=== PATIENT | female | born 1935 | race Caucasian/White ===

== ENCOUNTER 2020-09-02 14:59 | Inpatient (IN) | payer OTHER, BC ==
[~2020-09-02] VITALS: Ht 165.1 cm; Wt 81.3 kg
--- NOTE | ~2020-09-02 | EMS ---
[address] [address] EMS Patient Care Report Name: HAI STRAUSS Room #: PRE REYES MNeda#: [id number] Admission: Attend Phys: Discharge: Date of : 31 Report #: [id number] THIS REPORT FOR: //name// Report Transmitted: 09/02/2020 16:01 EMS Care Summary [facility] MED-ACT Incident [id number] @ 09/02/2020 14:21 Incident Location [address] [place] [address] Patient HAI GARRETT Female, 85 Years 1935 Patient Address [address] [place] [address] Patient History Hypertension (HTN),Fibromyalgia,Gastro-Esophageal Reflux Disease (GERD),Depression,Anxiety,Atrial Fibrillation,Chronic Pain, Patient Allergies No known allergies, Patient Medications Morphine, Guaifenesin, Lorazepam, Carvedilol, Ondansetron, Omeprazole, Sertraline, Chief Complaint she's had diarrhea Disposition Transported No Lights/Warren Dispatch Reason Sick Person Transported To [facility] Narrative [address] [address] EMS Patient Care Report Name: HAI STRAUSS Room #: PRE ER M.R.#: [id number] Admission: Attend Phys: Discharge: Date of : 33 Report #: [id number] Dispatched to [facility] for an 85 year old female reported to be getting weaker. Staff reports that the pt tested positive for COVID 19 over the weekend, after having a cough and diarrhea since Wednesday. She says that the pt also began vomiting today and is being sent to the ER at [facility] for further evaluation. Pt is found alert, seated in a recliner inside of her room. She reports that her stomach aches/cramps all over and that her R should (her "bad shoulder") hurts like always. Pt denies any dizziness, chest pain, dyspnea, or current nausea. Pt is assisted with standing and pivoting to the cot. She became incontinent of stool as she stood and pivoted. Pt was then secured and moved to the ambulance for a no lights or sirens transport to [facility]. Pt rested en-route to the ER without change in complaint. Pt lifted from the cot to the ER bed in room #7 using a lateral sheet pull. Care transferred to Rosalva XAVIER. Initial Vitals @14:48P: 95,SpO2: 97,DE Suspected: false @14:53P: 99,BP: 87/55,SpO2: 100, @14:43P: 109,R: 18,BP: 112/74,GCS: 15,SpO2: 95,Revised Trauma: 12, @14:34P: 92,R: 18,Pain: 4/10,GCS: 15,Temp: 97.4F, Assessments @14:35MENTAL:Person Oriented,Place Oriented,Event Oriented,Time Oriented,SKIN:HEENT:Head/Face: No Abnormalities,Eyes: No Abnormalities,LUNG SOUNDS:General: Nausea,Right Upper: Tenderness,Right Lower: Tenderness,Left Upper: Tenderness,Left Lower: Tenderness,General: Diarrhea,General: Vomiting,ABDOMEN:General: Nausea,Right Upper: Tenderness,Right Lower: Tenderness,Left Upper: Tenderness,Left Lower: Tenderness,General: Diarrhea,General: Vomiting,PELVIS//GI:Incontinence,EXTREMITIES:Right Arm: Other,Left Arm: No Abnormalities,Left Leg: No Abnormalities,Right Leg: No Abnormalities,PULSE:Radial: 2+ Normal,NEURO:No Abnormalities, Impression COVID-19 - Confirmed by testing Procedures @14:33Surgical Mask on PatientResponse: Unchanged Timeline 14:18,Call Received 14:18,Psap Call 14:21,Dispatched 14:22,En Route 14:26,On Scene 14:32,At Patient 14:33,Surgical Mask on Patient,Response: Unchanged 14:34,BP: / M,PULSE: 92,RR: 18 R,SPO2: Ox,ETCO2: ,BG: ,PAIN: 4,GCS: 15, 14:42,Depart Scene [address] [address] EMS Patient Care Report Name: HAI STRAUSS Room #: PRE ER M.R.#: [id number] Admission: Attend Phys: Discharge: Date of : 31 Report #: [id number] 14:43,BP: 112/74 M,PULSE: 109,RR: 18 R,SPO2: 95 Ox,ETCO2: ,BG: ,PAIN: ,GCS: 15, 14:48,BP: / M,PULSE: 95,RR: R,SPO2: 97 Ox,ETCO2: ,BG: ,PAIN: ,GCS: , 14:53,BP: 87/55 M,PULSE: 99,RR: R,SPO2: 100 Ox,ETCO2: ,BG: ,PAIN: ,GCS: , 14:55,At Destination 15:31,Call Closed Disclaimer v1.1 Copyright 2020 [employer] This EMS Care Summary contains data elements from the applicable legal record (which may be displayed differently). It is designed to provide pertinent information for the following purposes: continuity of care, clinical quality, and state data reporting. The complete legal record is available to ED staff and administrators of the receiving hospital in [employer]'s Patient Tracker. All data is provided "as is."
[2020-09-02 15:00] VITALS: BP 99/44
[2020-09-02 16:21] LABS: HEMATOCRIT 41.4 % (37.0-47.0); HEMOGLOBIN 13.4 gm/dL (12.0-15.0); MCH 27.1 pg (26.0-34.0); MCHC 32.4 g/dL (28.0-37.0); MCV 83.8 fL (80.0-100.0); RBC 4.94 mil/uL (4.20-5.00); RDW 16.7 % (10.5-14.5); WBC 6.3 thou/uL (4.0-11.0)
[2020-09-02 16:30] LABS: PLATELET COUNT 81 thou/uL (150-400)
[2020-09-02 16:49] LABS: ALBUMIN 3.7 g/dL (3.4-5.0); CREATININE 1.8 mg/dL (0.6-1.0); DIRECT BILIRUBIN 0.2 mg/dL (<0.1-0.2); POTASSIUM 3.8 mmol/L (3.5-5.1); TOTAL BILIRUBIN 0.5 mg/dL (0.2-1.0); TOTAL PROTEIN 6.4 g/dL (6.4-8.2)
[2020-09-02 16:57] LABS: CALCIUM 8.5 mg/dL (8.5-10.1)
[2020-09-02 17:24] LABS: ABSOLUTE NEUTROPHILS 2.5 thou/uL (1.4-8.2)
[2020-09-02 17:25] LABS: ANISOCYTOSIS 1+; LARGE PLATELETS OCCASIONAL
[2020-09-02 17:49] LABS: URINE BILIRUBIN NEGATIVE (Negative); URINE BLOOD 1+ (Negative); URINE CLARITY CLEAR; URINE COLOR YELLOW; URINE GLUCOSE-RANDOM* NEGATIVE (Negative); URINE KETONES NEGATIVE (Negative); URINE NITRITE-REFLEX NEGATIVE (Negative); URINE PROTEIN (DIPSTICK) NEGATIVE (Negative); URINE SPECIFIC GRAVITY >= 1.030 (1.005-1.035); URINE UROBILINOGEN 0.2 E.U./dl (0.2-1.0)
[2020-09-02 17:50] LABS: URINE LEUKOCYTES-REFLEX 1+ (Negative)
[2020-09-02 17:55] LABS: BACTERIA-REFLEX >30 Many /HPF (None Seen); CASTS None Seen /LPF (None Seen); CRYSTALS None Seen /LPF (None Seen); SQUAMOUS 0-3 Few /LPF (0-3)
[2020-09-02 17:56] LABS: URINE RBC 0-2 Rare /HPF (0-2); URINE WBC-REFLEX 0-5 Rare /HPF (0-5)
[2020-09-02 20:46] VITALS: BP 98/53
[2020-09-02 22:00] VITALS: BP 120/51
[2020-09-02 22:20] VITALS: BP 130/63
[2020-09-03] MEDS ORDERED: TYLENOL325 MG PO (02:14)
[2020-09-03] MEDS ORDERED: FLORANEX TABLE1 EACH PO (02:15)
[2020-09-03] MEDS ORDERED: BIOFREEZE118 ML TOP (02:19)
[2020-09-03] MEDS ORDERED: COREG25 M1 PO (02:20)
[2020-09-03] MEDS ORDERED: IRON325 M1 PO (02:22)
[2020-09-03] MEDS ORDERED: CHEST CONG100 MG/5 M PO (02:28)
[2020-09-03] MEDS ORDERED: LORAZEPAM 0.50.5 MG PO (02:29)
[2020-09-03] MEDS ORDERED: ARYMO ER30 MG PO (02:34)
[2020-09-03] MEDS ORDERED: MORPHINE SULFAT15 M3 PO (02:36)
[2020-09-03] MEDS ORDERED: OMEPRAZOLE20 M2 PO (02:44)
[2020-09-03] MEDS ORDERED: ONDANSETRON HCL4 M2 PO (02:45)
[2020-09-03] MEDS ORDERED: SERTRALINE HCL100 MG PO (02:47)
[2020-09-03] MEDS ORDERED: CLEARLAX17 GM PO (02:49)
[2020-09-03] MEDS ORDERED: SYSTANE COMPLET10 ML OPHTHALMIC (02:50)
--- NOTE | 2020-09-03 03:52 | NUR ---
Pt admitted from ED at 2220. A/OX2-3,pleasant,able to make needs known. VSS. Denies SOA, has a dry cough, on RA. C/o right shoulder pain,order obtained for [place] and applied with some relief reported.Incontinent of B&B. Redness noted on periarea,moisture barrier applied as needed. Pt reports she uses a RW in [place] but too weak to ambulate at this time. Fall precautions in place,agrees to call for help before getting up. Med rec completed per [place] records. NSR on telemetry. Resting quietly at this time,will continue to monitro pt.
[2020-09-03 05:37] LABS: CALCIUM 8.2 mg/dL (8.5-10.1); CREATININE 1.4 mg/dL (0.6-1.0); POTASSIUM 3.6 mmol/L (3.5-5.1)
[2020-09-03 05:55] VITALS: BP 126/61
[2020-09-03 07:27] VITALS: BP 143/88
[2020-09-03 11:31] VITALS: BP 130/88
[2020-09-03 15:22] VITALS: BP 99/55
--- NOTE | 2020-09-03 15:25 | NUR ---
PT CARE ASSUMED AT 0700, PT ALERT AND ORIENTED X3, FORGETFUL AND CONFUSED. THIS IS PT BASELINE ACCORDING TO PT DAUGHTERS. PT IS ON ROOM AIR, NO SIGNS OF DISTRESS NOTED. PT COMPLAINS OF RIGHT SHOULDER PAIN, PAIN MEDICATION GIVEN PER ORDER. PT HAS A POOR APPETITE, ENCOURAGE TO EAT BUT BARELY DID. FALL PRECAUTIONS IN PLACE. WILL CONTINUE TO MONITOR.
--- NOTE | 2020-09-03 15:32 | NUR ---
INITIAL ASSESSMENT: Received consult. ROBERT reviewed chart and spoke with nursing and attending physician. Pt was admitted from [facility] due to weakness/nausea/vomiting/dehydration. Pt placed in Enhanced Isolation due to have prior positive COVID-19 test at her facility. Pt is afebrile and not requiring O2. Pt is on IV abx. PT/OT ordered to evaluate pt. ROBERT received call from DUC Tapia with [facility], stating pt had been on service with them prior to admission. Hospice services were revoked in order for pt to be sent to the hospital for evaluation. Hospice revocation paperwork received and provided to [facility] to be scanned into pt's medical record. Pt with hx of dementia. ROBERT spoke with pt's dtr, Mariana, via phone. Introduced role of ROBERT. Pt has lived at [facility] for about 3 weeks. Pt and her dtr, Alea, just moved to the area. Pt was living in [place] with Mariana. Pt is normally w/c bound. Pt has lost about 70 pounds in the last 9 months. Pt was admitted to hospice while at [facility]. Pt's family is interested in SNF/LTC referral, as they feel that pt requires too much assistance in order to return to [facility]. ROBERT provided options for SNFs who are taking COVID pts. Pt's dtr requests referral to be sent to [facility]. ROBERT faxed referral and spoke with [facility] rental coordinator, Kecia. ROBERT updated Regina with [facility], who states that they have a contract with [facility] if pt needs hospice after short term skilled stay. Awaiting input from the SNF at this time. ROBERT is following to assist as needed with discharge planning.
[2020-09-03 20:04] VITALS: BP 102/46
--- NOTE | 2020-09-03 22:38 | NUR ---
PT ALERT AND RESTING IN BED. IVF INTACT, LUNGS CLEAR WITH COUGH. PT REPORTING CHRONIC R SHOULDER PAIN AND PRNS PROVIDED. PT HAS FEMALE EXT CATH IN PLACED. BED ALARM ON. PT PROVIDED HS SNACK. PT VERY TALKATIVE RE MOVING TO FROM [place], LIVING IN [place], HER , WHEN HE PASSED, WHERE THEY LIVED, THAT SHE HAS OUTLIVED ALL HER FRIENDS. PT COMPLAINED THAT SHE CAN NOT SLEEP WITH LIGHTS ON SUCH THE IV POLE AND BED ALARM, COVERED WITH TOWELS PER HER REQUEST.
[2020-09-04 04:21] VITALS: BP 135/83
[2020-09-04 05:14] LABS: CREATININE 0.9 mg/dL (0.6-1.0); POTASSIUM 4.5 mmol/L (3.5-5.1)
[2020-09-04 06:06] LABS: HEMOGLOBIN 12.6 gm/dL (12.0-15.0); MCH 27.8 pg (26.0-34.0); MCHC 32.5 g/dL (28.0-37.0)
[2020-09-04 06:08] LABS: HEMATOCRIT 38.6 % (37.0-47.0); MCV 85.3 fL (80.0-100.0); RBC 4.53 mil/uL (4.20-5.00); RDW 17.2 % (10.5-14.5); WBC 5.6 thou/uL (4.0-11.0)
[2020-09-04 08:42] VITALS: BP 118/73
[2020-09-04 08:50] VITALS: BP 118/73
--- NOTE | 2020-09-04 10:08 | NUR ---
DR LORENZO HERE NEW ORDERS TO DC TELE AND FLUIDS. HE STATES PT IS READY FOR DC. WILL SPEAK WITH CASE MANAGEMENT.
--- NOTE | 2020-09-04 10:09 | NUR ---
PT ATE BREAKFAST AND TOOK AM MEDS COMPLIANT WITH CARE.
--- NOTE | 2020-09-04 11:13 | NUR ---
SPOKE WITH PATIENTS DAUGHTER AMANDA AT [phone] UPDATE HER ON PATIENTS CONDITION AND ANSWERED HER QUESTIONS.
--- NOTE | 2020-09-04 14:40 | NUR ---
DISCHARGE NOTE: ROBERT reviewed chart and spoke with nursing and attending physician. Pt remains in Enhanced Isolation due to COVID-19. Pt is medically stable for discharge to post-acute care today. ROBERT spoke with Kecia, clinical program coordinator at [facility] who states they are able to accept pt today. Kecia has spoken with pt's dtr, Mariana, regarding skilled stay and then possible transition to LTC or [place] after skilled stay. ROBERT faxed finalized discharge orders/summary to the facility and confirmed info was received. W/c van transportation scheduled for [phone] per facility's arrangements. ROBERT spoke with pt's dtr, Mariana via phone to provide update and discuss discharge plan. Mariana is aware and in agreement with plan. ROBERT updated [facility] rug weaver, Regina, who will follow pt at the facility, should pt need hospice after skilled rehab. Chart copy requested. Nursing to call report. ROBERT updated Yelena at [facility] of pt's discharge disposition. No additional SW needs identified at this time, but is available to assist should needs arise.
--- NOTE | 2020-09-04 16:04 | NUR ---
discharge papers reviewed signed and copy in chart. iv acsess dcd. all belongings packed and sent with patient. tried to call report to reena polk but left message no one answered tried xs 2. pt left at approx 15:30 while this nurse was at lunch.
== END 2020-09-04 16:09 | DRG 871 ==
LOC: EDBD 14:59 → ER 14:59 → EROBS 20:07 → 3W 20:07
PROVIDERS: Emergency Medicine; Hospitalist; Nurse Practitioner Family; ADMIT Hospitalist; ATTEND Hospitalist
DX: A41.89 Other specified sepsis (principal); U07.1 COVID-19; J12.89 Other viral pneumonia; N17.0 Acute kidney failure with tubular necrosis; N39.0 Urinary tract infection, site not specified; F41.9 Anxiety disorder, unspecified; K21.9 Gastro-esophageal reflux disease without esophagitis; I10 Essential (primary) hypertension; F32.9 Major depressive disorder, single episode, unspecified; E86.0 Dehydration; G89.4 Chronic pain syndrome; Z60.2 Problems related to living alone; I48.0 Paroxysmal atrial fibrillation; M79.7 Fibromyalgia; D69.6 Thrombocytopenia, unspecified; Z79.899 Other long term (current) drug therapy
CPT/HCPCS: 10879

== ENCOUNTER 2020-11-28 18:13 | Inpatient (IN) | payer OTHER, BC ==
[~2020-11-28] VITALS: Ht 165.1 cm; Wt 77.6 kg
[~2020-11-28 18:13] MED LIST: ARYMO ER30 MG PO; BIOFREEZE118 ML TOP; CHEST CONG100 MG/5 M PO; CLEARLAX17 GM PO; COREG25 M1 PO; FLORANEX TABLE1 EACH PO; IRON325 M1 PO; LORAZEPAM 0.50.5 MG PO; MORPHINE SULFAT15 M3 PO; OMEPRAZOLE20 M2 PO; ONDANSETRON HCL4 M2 PO; SERTRALINE HCL100 MG PO; SYSTANE COMPLET10 ML OPHTHALMIC; TYLENOL325 MG PO
[2020-11-28 18:14] VITALS: BP 112/57
[2020-11-28 19:19] LABS: URINE BILIRUBIN 1+ (Negative); URINE BLOOD 2+ (Negative); URINE CLARITY CLOUDY; URINE COLOR YELLOW; URINE GLUCOSE-RANDOM* NEGATIVE (Negative); URINE KETONES 1+ (Negative); URINE PROTEIN (DIPSTICK) 2+ (Negative); URINE SPECIFIC GRAVITY 1.015 (1.005-1.035)
[2020-11-28 19:20] LABS: URINE LEUKOCYTES-REFLEX 3+ (Negative); URINE NITRITE-REFLEX POSITIVE (Negative)
[2020-11-28 19:21] LABS: HEMATOCRIT 37.2 % (37.0-47.0); HEMOGLOBIN 11.7 gm/dL (12.0-15.0); ICTOTEST (BILI CONFIRMATORY) Positive (Negative); MCHC 31.5 g/dL (28.0-37.0); MCV 82.6 fL (80.0-100.0); PLATELET COUNT 104 thou/uL (150-400); RDW 17.7 % (10.5-14.5)
[2020-11-28 19:34] LABS: POTASSIUM 3.4 mmol/L (3.5-5.1)
[2020-11-28 19:41] LABS: ALBUMIN 3.4 g/dL (3.4-5.0); TOTAL BILIRUBIN 1.9 mg/dL (0.2-1.0); TOTAL PROTEIN 6.9 g/dL (6.4-8.2)
[2020-11-28 19:43] LABS: TRIPLE PHOSPHATE CRYSTALS 4-10 Moderate /LPF (None Seen)
[2020-11-28 19:45] LABS: BACTERIA-REFLEX >30 Many /HPF (None Seen)
[2020-11-28 19:46] LABS: SQUAMOUS 4-10 Moderate /LPF (0-3)
[2020-11-28 19:48] LABS: CASTS None Seen /LPF (None Seen); RENAL EPITHELIAL CELLS 0-3 Few /LPF (None Seen); TRANSITIONAL EPITHEL CELL 0-3 Few /LPF (None Seen)
[2020-11-28 20:42] LABS: ANISOCYTOSIS 1+
--- NOTE | 2020-11-28 20:45 | NUR ---
SUSANNE NOTIFIED THAT CATHETER ATTEMPTS WERE UNSUCCESSFUL. AND THAT MULTIPLE RN's ATTEMPTED
[2020-11-28] MEDS ORDERED: NEURONTIN100 MG PO (21:23)
[2020-11-28] MEDS ORDERED: CULTURELLE KID1 EAC1 PO (21:23)
[2020-11-28] MEDS ORDERED: IRON325 M1 PO (21:23)
[2020-11-28] MEDS ORDERED: LORAZEPAM 0.50.5 MG PO (21:25)
[2020-11-28] MEDS ORDERED: MORPHINE SULFAT15 M4 PO (21:27)
[2020-11-28] MEDS ORDERED: SILTUSSIN100 MG/5 M PO (21:28)
[2020-11-28] MEDS ORDERED: SEROQUEL 25 MG25 MG PO (21:29)
[2020-11-28] MEDS ORDERED: PROZAC20 MG PO (21:29)
[2020-11-29] VITALS (7 sets, daily range): BP systolic 101–145; BP diastolic 53–78
--- NOTE | 2020-11-29 00:58 | NUR ---
THIS RN SPOKE TO DAUGHTER AMANDA ON THE PHONE AND UPDATED HER ON PATIENT STATUS
--- NOTE | 2020-11-29 01:36 | NUR ---
XRAY ORDERED FOR PATIENT BY GAUDENCIO PINEDA. WILL HAVE XRAY COMPLETED AND THEN TRANSFER PT TO FLOOR.
--- NOTE | 2020-11-29 02:09 | NUR ---
XRAY complete. Will transfer to floor.
--- NOTE | 2020-11-29 04:43 | NUR ---
ADMITTED ON THE UNIT AT APPROXIMATELY 0230. PT IS A/O X1 AND IS ON BEDREST DUE TO WEAKNESS AND INABILITY TO STAND. PT IS ON ROOM AIR. AFIB ON THE MONITOR. HANSEN CATHETER IN PLACE DRAINING CLOUDY YELLOW URINE. C/O GENERALIZED PAIN AND PAIN IN BILAT SHOULDERS. PRN PAIN MEDICATION GIVEN. YELLS OUT WHEN CARES ARE DONE. FALL PRECAUTIONS IN PLACE, CALL LIGHT IS WITHIN REACH. WILL CONTINUE TO MONITOR.
[2020-11-29 05:28] LABS: CALCIUM 8.2 mg/dL (8.5-10.1); CREATININE 0.9 mg/dL (0.6-1.0); POTASSIUM 3.2 mmol/L (3.5-5.1)
[2020-11-29 05:33] LABS: HEMATOCRIT 33.7 % (37.0-47.0); HEMOGLOBIN 10.7 gm/dL (12.0-15.0); MCH 26.3 pg (26.0-34.0); MCHC 31.9 g/dL (28.0-37.0); MCV 82.6 fL (80.0-100.0); RBC 4.07 mil/uL (4.20-5.00); RDW 17.3 % (10.5-14.5); WBC 9.6 thou/uL (4.0-11.0)
--- NOTE | 2020-11-29 15:58 | NUR ---
SPOKE WITH MARNI IN INTAKE AT [facility] HH PT ON SERVICE WITH THEM PRIOR TO ADM FAXED CLINICAL UPDATE SPOKE WITH [facility] AND THEY CAN RESUME HH AT [place] IF NEEDED.
--- NOTE | 2020-11-29 16:38 | NUR ---
Patient admits from [facility] assisted living. Spoke with dtr Mariana who resides in [place]. She reports interest in hospice eval by [facility]. Left message with [facility]. faxed referral to [facility]. Sp with Cher they completed an onsite eval and report patient accepted to their hospice upon discharge. Yelena IGLESIA of [facility] returned call and reports TODAY they gave patient 30 day notice. They report patient is Max assist of 2 for transfers and needs more care than they can provide. Sp with dtr Mariana who reports she was notified. She will review and try to find ltc in [place]. She reports she has spoken with Cher with [facility] who will assist her in locating pvt dty. If discharge over weekend Please call dtr Mariana [phone] Call [facility] at [phone] and ask where to fax orders. Call in Hospice Cher at [phone]. Call [employer] [phone] for stretcher van set up.
--- NOTE | 2020-11-29 18:17 | NUR ---
ASSUMED CARE OF PATIENT AT SHIFT CHANGE. ASSESSMENT CHARTED. MEDICATIONS ADMINISTERED PER EMAR. VSS. PATIENT IS A&OX3 BUT CAN MAKE NEEDS KNOWN. PATIENT C/O PAIN; GENERALIZED AND ESPECIALLY WHEN BEING TOUCHED. TYLENOL DOES NOT PROVIDE ANY RELIEF. PROVIDER NOTIFIED AND MORPHINE ORDERED. PATIENT IS INCONINENT AND HAD MULTIPLE LARGE STOOLS THIS DAY. HANSEN IS INTACT AND DRAINING. BLADDER SCANNED AND FOUND NO RESIDUAL URINE; PROVIDER NOTIFIED OF THIS WELL. PATIENT OFFERED REPOSITIONING Q2HRS. ORDERED CREAM APPLIED ON LABIA WHERE REDNESS IS. HOSPICE SERVICES VISITED AND TRIED TO INTERVIEW PATIENT. PATIENT CONTINUES TO VOICE PAIN AND FATIGUE. ON BEDREST CURRENTLY. WILL CONTINUE TO MONITOR AND WILL ENDORSE TO NOC. DUC
--- NOTE | 2020-11-30 03:05 | NUR ---
PT CARE ASSUMED WITH PT RESTING IN BED.PT IS A/O X3.PT IS ON BEDREST .PT C/O GENERALIZED BODY PAIN AND PPAIN ON TOUCH OR WHEN MOVING ,REPOSITIONING AND CLEANING PT.PT VERY FORGETFUL.PT HAS MORPHINE PO AND IV FOR PAIN MANAGEMENT WITH PARTIAL RELIEF.IV ACCESS IN LT AC WITH NS AT 126CC/HR.PT HAS A HANSEN AND HAD A BM THIS AM.WILL CONTINUE TO MONITOR
[2020-11-30 05:45] LABS: HEMATOCRIT 34.6 % (37.0-47.0); MCHC 31.9 g/dL (28.0-37.0); MCV 81.5 fL (80.0-100.0); RBC 4.24 mil/uL (4.20-5.00); RDW 17.7 % (10.5-14.5); WBC 8.4 thou/uL (4.0-11.0)
[2020-11-30 05:57] LABS: ALBUMIN 2.8 g/dL (3.4-5.0); CALCIUM 8.9 mg/dL (8.5-10.1); CREATININE 0.7 mg/dL (0.6-1.0); PHOSPHORUS 1.8 mg/dL (2.5-4.9); POTASSIUM 3.2 mmol/L (3.5-5.1)
[2020-11-30 07:10] VITALS: BP 166/80
[2020-11-30 08:28] VITALS: BP 166/80
[2020-11-30 14:57] VITALS: BP 149/80
--- NOTE | 2020-11-30 15:52 | NUR ---
ASSUMED CARE OF PATIENT AT 0700. ASSESSMENT CHARTED. MEDICATIONS ADMINISTERED PER EMAR. VSS. PATIENT IS A&OX2-3 BUT FORGETFUL AND CONFUSED AT TIMES. PATIENT VOICES PAIN CONSTANTLY. PROVIDER ORDERED A FENTANYL PATCH FOR THE PATIENT. PATIENT VOICED SOME PAIN RELIEF AFTER RECIEVING MORPHINE SHOT. PATIENT WAS VERY ANXIIOUS THIS SHIFT AND VOICED WANTING TO GO BACK TO HER HOME. PATIENT SPOKE TO DTR AND APPEARED TO BE LESS ANXIOUS. PATIENT BEING REPOSITIONED Q2HRS TOLERATED. BARRIER CREAM AND SILVER MORHINE CREAM APPLIED TO RED JORGE AREA. CATHETER APPEARED TO BE LEAKING BUT REATTCHED TO STAT LOCK AND SEEMED TO RESOLVE. FALL PRECAUTIONS IN PLACE. NO D/C THIS WEEKEND PER CM. WILL CONTINUE TO MONITOR AND FOLLOW PLAN OF CARE
[2020-11-30 19:51] VITALS: BP 151/91
[2020-12-01 04:35] VITALS: BP 147/104
--- NOTE | 2020-12-01 05:48 | NUR ---
Assumed pt care at 1900. A/OX3 with intermittent confusion and forgetfulness noted. Pt able to voice needs as needed. VSS. C/o pain to shoulders,back/BLE with movement;medicate per EMAR with some relief reported.Pt's IV on LAC infiltrated changed to RFA/AC area with one attempt w/o problems. Pt has a sparrow with orange colored urine d/t pyridium,leaking on and off. Redness on periarea noted,nystatin/morphine with silverdene applied as ordered. Fall precautions in place,calls as needed for help.
[2020-12-01 06:48] LABS: ALBUMIN 2.8 g/dL (3.4-5.0); CALCIUM 8.7 mg/dL (8.5-10.1); CREATININE 0.7 mg/dL (0.6-1.0); PHOSPHORUS 2.6 mg/dL (2.5-4.9); POTASSIUM 3.3 mmol/L (3.5-5.1)
[2020-12-01 07:57] VITALS: BP 143/92
[2020-12-01 15:05] VITALS: BP 132/79
--- NOTE | 2020-12-01 15:51 | NUR ---
PT ALERT AND ORIENTED WITH FORGETFULNESS. PRN PAIN MED GIVEN WITH PARTIAL RELIEF. NEW ORDERS NOTED. NO CONCERNS AT THIS TIME.
[2020-12-01 20:12] VITALS: BP 150/88
[2020-12-01 23:30] VITALS: BP 130/87
[2020-12-02 07:00] VITALS: BP 171/100
[2020-12-02] MEDS ORDERED: MORPHINE SULFAT15 M4 PO (08:56)
[2020-12-02] MEDS ORDERED: FENTANYL1 EAC1 TRANSDERM (08:56)
[2020-12-02] MEDS ORDERED: NYSTATIN-TRIAMC15 GM TOP (08:57)
[2020-12-02] MEDS ORDERED: DIFLUCAN100 MG PO (08:58)
[2020-12-02] MEDS ORDERED: AUGMENTIN 875-1 EACH PO (08:58)
--- NOTE | 2020-12-02 11:39 | NUR ---
FAXED REFERRAL TO [facility] SPOKE WITH ALEYDA IN ADM SHE RECEIVED REFERRAL QUESTIONED WHY PT ON [place] AND REQUESTING COPY OF MEDICAID APPLICATION SHE WILL REVIEW REFERRAL.
--- NOTE | 2020-12-02 11:45 | HC ---
[facility] [place] [address] CONSULTATION Name: HAI GARRETT Room #: 457-P [facility] IN .R.#: [id number] Admission: 11/28/20 Attend Phys: Jamison Peguero Discharge: Date of : 31 Report #: [id number] THIS REPORT FOR: cc: Gisell Vilallta,Roe Evans MD ~ DATE OF SERVICE: 11/29/2020 WOUND CARE CONSULTATION PERSONAL PHYSICIAN: Gisell Villalta DO. CHIEF COMPLAINT: Vaginal ulcerations and fungal rash. HISTORY OF PRESENT ILLNESS: This is an 85-year-old white female who was admitted through the Emergency Department last night for urinary tract infection and sepsis. The patient has a known chronic indwelling Angel and the daughter reported that the patient had blood in the catheter bag over the past few days. The patient herself is fairly confused and unable to give any history. Nursing staff stated when they were changing the Angel, they noted there were some ulcerations around the urethra as well as what appeared to be a fungal type rash in the labia. We have been asked to see the patient for these wounds. The patient herself once again is unable to give any other history. The nursing staff denied any other associated wounds. PAST MEDICAL HISTORY: Significant for atrial fibrillation, chronic pain syndrome, fibromyalgia, depression, gastroesophageal reflux disease, hypertension, anxiety, recurrent urinary tract infections, and a history of COVID-19 infection. CURRENT MEDICATIONS: Multiple, I reviewed the patient's medication list. DRUG ALLERGIES: None. SOCIAL HISTORY: The patient supposedly lives in a long-term care facility. FAMILY HISTORY AND REVIEW OF SYSTEMS: Unobtainable because of the patient's altered mental status and confusion. PHYSICAL EXAMINATION: VITAL SIGNS: Temperature 36.8, pulse 73, respirations 20, BP 127/71. GENERAL: This is an elderly, chronically ill-appearing white female who is in mild distress secondary to her symptoms. HEENT: Normocephalic, atraumatic. Mucous membranes are somewhat dry. Pupils are round. Sclerae white. [facility] [address] [place] [address] CONSULTATION Name: HAI GARRETT Room #: 457-P [facility] IN ..#: [id number] Admission: 11/28/20 Attend Phys: Jamison Peguero Discharge: Date of : 31 Report #: [id number] NECK: Without JVD. LUNGS: Slight diminished breath sounds heard throughout. HEART: Irregularly irregular. ABDOMEN: Obese, soft, otherwise nontender. GENITALIA: Evaluation of the vaginal region reveals ulceration surrounding the urethra consistent with pressure ulceration from the Angel. There is a small amount of fungal rash noted on the labia with excoriation, irritation. There is no active bleeding noted at this time. EXTREMITIES: The patient moves all extremities without difficulty. Bilateral heels are intact. NEUROLOGIC: Cranial nerves 2-12 grossly intact. Motor and sensory grossly intact. LABORATORY VALUES: White count 9.6, hemoglobin 10.7. BUN 15, creatinine 0.9, albumin 3.4. IMPRESSION: 1. 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 2. Vaginal candidiasis. 3. Sepsis secondary to urinary tract infection. 4. Generalized debility. PLAN: We will start morphine, Silvadene cream to the area, which appears to be tender during my exam. Nystatin powder had already been ordered. We will continue with that as well. We will have the morphine, Silvadene cream placed twice daily and p.r.n. soilage. We will attempt to utilize physical and occupational therapy as the patient is able for strengthening. We will continue all other current medications. We will continue to follow the patient. <ELECTRONICALLY SIGNED> By: Roe Maurer MD 12/02/20 1145 [id number] [id number] Roe Maurer MD /nt
--- NOTE | 2020-12-02 11:49 | NUR ---
Received awake on bed. Due medications given as prescribed, able to swallow meds w/o difficulty. On room air. Vital signs stable. On MS, not on telemetry; no complains and signs of chest pain, crushing sensation and heaviness. Assisted in ADLs. On heart healthy diet- assissted and encouraged in eating and drinking; no nausea, no vomiting and no abdominal pain. Falls bundle in place. With sparrow(chronic) in place- draining well; output measured and recorded accordingly. With excoriation at sydni-area, labia- ointment applied; sydni care done. With SL at R AC; on IV antibiotics. Pt turned on his sides. Complained of pain, due PRN pain meds given as prescribed; with fentanyl patch in place- due to be changed tomorrow 12/03. Bed bath done to patient. To continue monitoring patient.
[2020-12-02 11:53] VITALS: BP 159/107
--- NOTE | 2020-12-02 12:04 | NUR ---
CM FOLLOWED UP WITH PT'S DTR MOLLY THIS AM. SHE INDICATED THAT SHE WOULD SPEAK WITH HER SISTER AMANDA AND LEFT CM KNOW WHERE THEY WANTED REFERRALS SENT FOR REVIEW FOR POSSIBLE ADMISSION. THEY WOULD LIKE FOR PT TO SC TO SNF INITIALLY AND THEN TRANSITION TO LTC WITH [facility]. THEY ASKED THAT REFERRAL BE SENT TO [facility] FOR REVIEW FOR POSSIBLE ADMISSION. THEY ASKED THAT [employer] ASSIST THEM IN COMPLETING [place] MEDICAID APPLICATION. CM EMAILED AND CALLED MED ASSIST TO NOTIFY THEM. [facility] WANTS COPY OF APPLICATION ONCE COMPLETED. CM TO FOLLOW INDICATED WITH DC PLANNING.
[2020-12-02 15:26] VITALS: BP 157/102
[2020-12-02 20:00] VITALS: BP 177/113
[2020-12-02 20:02] VITALS: BP 154/97
--- NOTE | 2020-12-03 03:48 | NUR ---
PT IS A/O X2 AND IS ON BED REST. ROOM AIR. MS STATUS. HANSEN IN PLACE AND DRAINING ORANGE URINE. NO BM THIS SHIFT.C/O GENERALIZED PAIN ALL OVER. PRN PAIN MEDICATION GIVEN DIRECTED. FALL PRECAUTIONS IMPLEMENTED, CALL LIGHT IS WITHIN REACH. WILL CONTINUE TO MONITOR.
[2020-12-03 07:29] VITALS: BP 146/89
--- NOTE | 2020-12-03 10:03 | NUR ---
DENIZ CALLED AND SPOKE WITH ALEYDA IN ADMISSIONS AT [facility] AND SHE INDICATED THEY PRIOR TO ACCEPTING PT THEY NEEDED A COPY OF THE PENDING [place] MEDICAID APPLICATION. DENIZ INIDCATED THAT DENIZ HAD REACHED OUT TO [employer] THE COMPANY HERE IN HOUSE WHO ASSISTS AND INDICATED THAT A COPY WAS NEEDED FOR FACILITY PLACEMENT. DENIZ EMAILED [employer] AGAIN THIS AM AND CALLLED AND LET A VM. DENIZ TO FOLLOW INDICATED WITH DC PLANNING.
[2020-12-03 15:42] VITALS: BP 141/104
--- NOTE | 2020-12-03 19:54 | NUR ---
Received awake on bed. Due medications given as prescribed, able to swallow meds w/o difficulty. On room air. Vital signs stable. On MS, no complains and signs of chest pain, crushing sensation and heaviness. Assisted in ADLs. On heart healthy diet- with poor appetite; encouraged and assisted in eating and drinking, offered snacks from time to time; no nausea, no vomiting and no abdominal pain noted. With sparrow in place- draining well; orange urine from antibiotics noted; output measured and recorded accordingly. Falls bundle in place. Pt turned on her sides, may refuse at times. With excoriation on her labia- wound regimen followed. With SL at R AC- on IV antibiotics. Complained of pain, due PRN pain meds given as prescribed. Ongoing PT/OT. Still a/w placement- CM aware and working on her discharge. With episodes of confusion- re-oriented from time to time. To continue monitoring patient.
[2020-12-03 20:39] VITALS: BP 154/90
[2020-12-04 07:31] VITALS: BP 127/74
--- NOTE | 2020-12-04 08:18 | NUR ---
Assumed pt care at 1900. A/OX3 with confusion and forgetfulness but able to make needs known. C/o generalized pain with movement,medicated per EMAR with relief reported. Pt has a sparrow to DD with orange colored urine. Fall precautions in place,calls approp for help.
[2020-12-04 14:53] VITALS: BP 154/98
--- NOTE | 2020-12-04 16:16 | NUR ---
SRIKANTH PIZANOITTED [place] MEDICAID APPLICATION AND PROVIDED CM WITH CONFIRMATION NUMBER. CM FAXED THIS TO ALEYDA AT [facility] AND SHE INDICATED THAT THEY NEED ACTUAL APPLICATION TO SEE ANSWERS TO SPECIFIC QUESTIONS. CM ASKED [facility] IF HE CAN ACCESS ACTUAL OSMANY AND HE INDICATED HE CAN'T ALEYDA INDICATED THAT SHE HAD PROVIDED PAPER APPLICATION TO DTR TO COMPLETE. THIS MIGHT NEED TO BE DONE.[facility] STATED THAT ONCE THEY HAVE THAT INFO THEY CAN ACCEPT PT BUT NOT BEFORE.
--- NOTE | 2020-12-04 19:54 | NUR ---
Received awake on bed. Due medications given as prescribed, able to swallow meds w/o difficulty. On room air. Vital signs stable. On MS, no complains and signs of chest pain, crushing sensation and heaviness. Assisted in ADLs. on heart healthy diet, tolerating well; no nausea, no vomiting and no abdominal pain noted; encouraged and assisted in eating and drinking. With sparrow in place- draining orange urine- pt on UTI meds; output measured and recorded accordingly. Pt turned on her sides regularly. With SL at R AC- intact. With excoriation at perineal area; wound photo to be taken today- night RN informed that photos were not taken at day shift. Complained of pain, due PRN pain meds given as prescribed, with pain patch at R chest as well. Still a/w medicaid application; a/w discharge disposition. To continue monitoring patient.
[2020-12-04 20:49] VITALS: BP 141/83
[2020-12-05 07:26] VITALS: BP 131/87
--- NOTE | 2020-12-05 07:45 | NUR ---
Assumed pt care at 1900. A/OX3,with confusion/forgetfulness noted.. VSS. C/o pain with movement,medicated per EMAR with sole relief reported. Angel patent to DD with orange urine, leaking once at night balloon inflated a little with no more leaking noted. Wound picture taken on left inner thigh and filed. Fall precautions in place,calls approp for help. New PIV inserted on LAC with one attempt.
--- NOTE | 2020-12-05 13:36 | NUR ---
CM FOLLOWED UP WITH PT'S DTR AMANDA BARNES, AND ALEYDA AT [facility] THIS AM. CM INDICATED THAT CM DIDN'T HAVE ACCESS TO THE SUBMITTED [place] [facility] APPLICATION. DENIZ SPOKE WITH AMANDA AND SHE IS GOING TO COMPLETE THE PAPER APPLICATION TO PROVIDE TO ALEYDA AT [facility] LATER THIS AFTERNOON. CM HOPEING THAT [facility] WILL BE ABLE TO ACCEPT PT TOMORROW. CM HAD REITERATED THAT TO PT, FAMILY, AND FACILITY THAT PT IS MEDICALLY STABLE TO [facility]HC[facility].
[2020-12-05 15:24] VITALS: BP 92/74
[2020-12-05 19:08] VITALS: BP 145/99
--- NOTE | 2020-12-06 03:14 | NUR ---
ASSUMED CARE OF PT AT 1900. PT IS A/O X2 AND IS UP WITH MAX ASSIST. ROOM AIR. MEDSURG STATUS. VSS. HANSEN IN PLACE AND DRAINING YELLOW URINE. NO BM THIS SHIFT. C/O GENERALIZED PAIN. PRN PAIN MEDICATION GIVEN DIRECTED. FALL PRECAUTIONS IN PLACE, CALL LIGHT IS WITHIN REACH. WILL CONTINUE TO MONITOR.
[2020-12-06 07:49] VITALS: BP 146/94
--- NOTE | 2020-12-06 08:06 | NUR ---
PROGRESS NOTE FOR 12/05/20 PATIENT IS ALERT TO SELF BUT CONFUSED AND VERY FORGETFUL. VOICING PAIN ESPECIALLY ON R SHOULDER. MEDICATED NEEDED BUT NO RELIEF. BARRIER AND MEDICATED CREAMS APPLIED TO [facility] AREAS NEEDED. PLAN IS FOR PATIENT TO POTENTIALLY DISCHARGE TO [facility] ON 12/06/2020 PENDING APPROVAL. FALL PRECAUTIONS IN PLACE. ENDORSED TO NOC RN
[2020-12-06] MEDS ORDERED: AUGMENTIN 875-1 EACH PO (16:22)
[2020-12-06 16:23] VITALS: BP 155/104
[2020-12-06] MEDS ORDERED: COLESTID1 GM PO (16:24)
[2020-12-06] MEDS ORDERED: METRONIDAZOLE45 G1 TOP (16:24)
--- NOTE | 2020-12-06 16:29 | NUR ---
PT ACCEPTED FOR ADMISSION TO [facility] THIS DAY. [facility] ARRANGED FOR 1644. CHART COPY MADE. ORDERD FAXED. NURSE GIVEN NUMBER FOR REPORT. DTRS ARE AWARE AND AGREEABLE. NO OTHER CM INTERVENTION INDICTED. CASE CLOSED.
--- NOTE | 2020-12-06 16:38 | NUR ---
FAXED DISCHARGE ORDERS AND SUMMARY TO [facility]. WILL CONFIRM WITH ALEYDA/INTAKE THAT THEY RECEIVED. [facility] P [phone]; FAX [phone]
[2020-12-06 17:10] VITALS: BP 155/104
--- NOTE | 2020-12-06 17:12 | NUR ---
ASSUMED CARE OF PATIENT AT 0700. ASSESSMENT CHARTED. MEDICATIONS ADMINISTERED PER EMAR. VSS. PATIENT REMAIN A&OX2-3 AND VERY FORGETFUL. VERY VERY AGITATED AND ANXIOUS ABOUT WANTING TO LEAVE. CRYING AND VOICING PAIN AND DISCOMFORT. PATIENT WAS ACCEPTED TO [facility] AND REPORT WAS CALLED AT 1700; ATTEMPTED BUT NO ANSWER x2. LEFT MESSAGE W CONTACT INFO. PATIENT LEFT AT 1700 W NO ISSUES
== END 2020-12-06 17:30 | DRG 871 ==
LOC: ER 18:13 → EROBS 23:37 → 4W 23:37
PROVIDERS: Nurse Practitioner Family; Physician Assistant; ADMIT Hospitalist; ATTEND Hospitalist
DX: A41.9 Sepsis, unspecified organism (principal); G93.41 Metabolic encephalopathy; N39.0 Urinary tract infection, site not specified; Z16.12 Extended spectrum beta lactamase (ESBL) resistance; E44.0 Moderate protein-calorie malnutrition; F41.9 Anxiety disorder, unspecified; I48.91 Unspecified atrial fibrillation; F32.9 Major depressive disorder, single episode, unspecified; I10 Essential (primary) hypertension; M19.90 Unspecified osteoarthritis, unspecified site; G89.4 Chronic pain syndrome; K21.9 Gastro-esophageal reflux disease without esophagitis; Z66 Do not resuscitate; B37.3 Candidiasis of vulva and vagina; M79.7 Fibromyalgia; R73.9 Hyperglycemia, unspecified; I95.9 Hypotension, unspecified; B96.20 Unspecified Escherichia coli [E. coli] as the cause of diseases classified elsewhere; E87.6 Hypokalemia; F03.90 Unspecified dementia, unspecified severity, without behavioral disturbance, psychotic disturbance, mood disturbance, and anxiety; L98.499 Non-pressure chronic ulcer of skin of other sites with unspecified severity; Z86.16 Personal history of COVID-19; S31.40XA Unspecified open wound of vagina and vulva, initial encounter; X58.XXXA Exposure to other specified factors, initial encounter; Y93.89 Activity, other specified; Y92.89 Other specified places as the place of occurrence of the external cause; Y99.8 Other external cause status; Z68.28 Body mass index [BMI] 28.0-28.9, adult; Z28.21 Immunization not carried out because of patient refusal
CPT/HCPCS: 10045; 10047